=== PATIENT | female | born 1980 | race Two or more races ===

== ENCOUNTER 2017-01-19 15:49 | Emergency (ER) | payer MEDICAID, OTHER ==
[~2017-01-19] VITALS: Ht 167.6 cm; Wt 96.2 kg
[2017-01-19] MEDS ORDERED: SODIUM CHLORIDE FLUSH 10ML SYR IVF ONE (16:00)
[2017-01-19] MEDS ORDERED: ASPIRIN 81 MG TABLET CHEW PO ONE (16:00)
[2017-01-19] MEDS ORDERED: SODIUM CHLORIDE 0.9% 1,000ML IVBOLUS ONE (16:00)
[2017-01-19 16:42] LABS: BLOOD UREA NITROGEN 15 mg/dL (7-18)
[2017-01-19 16:43] LABS: IS PT STATUS REG ER OR PRE ER? YES
[2017-01-19 19:08] VITALS: BP 112/74
== END 2017-01-19 19:15 | disposition home or self-care (01) ==
LOC: ED 19:09
DX: R06.00 Dyspnea, unspecified (principal); R06.02 Shortness of breath
CPT/HCPCS: 36415; 71020; 80048; 81003; 82040; 84484; 84703; 85025; 93005; 99285